=== PATIENT | male | born 1980 | race Caucasian/White ===

== ENCOUNTER 2019-03-13 19:37 | Emergency (ER) | payer OTHER ==
[~2019-03-13] VITALS: Ht 180.3 cm; Wt 99.8 kg
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
[2019-03-13 19:45] VITALS: BP 114/87
[2019-03-13] MEDS ORDERED: MORPHINE SULFATE 10 MG/ML SYRINGE. SQ ONE (20:15)
[2019-03-13] MEDS ORDERED: NEOM1PAC TP (20:46)
[2019-03-13] MEDS ORDERED: HYDR-1179 PO (20:46)
[2019-03-13] MEDS ORDERED: ACET500T68 PO (20:46)
[2019-03-13] MEDS ORDERED: IBUP800T19 PO (20:46)
[2019-03-13] MEDS ORDERED: HYDROcodon/IBUPROFEN 7.5/200MG 1 TAB TABLET PO ONE (21:00)
[2019-03-13] MEDS ORDERED: NEOMY/BACITR/POLYMYXIN OINT PACKET. TP ONE (21:00)
== END 2019-03-13 21:45 | disposition home or self-care (01) ==
LOC: ER 19:37
DX: S40.012A Contusion of left shoulder, initial encounter (principal); S40.011A Contusion of right shoulder, initial encounter; S40.022A Contusion of left upper arm, initial encounter; S40.021A Contusion of right upper arm, initial encounter; S80.12XA Contusion of left lower leg, initial encounter; S80.11XA Contusion of right lower leg, initial encounter; V18.4XXA Pedal cycle driver injured in noncollision transport accident in traffic accident, initial encounter; Y93.I9 Activity, other involving external motion; Y92.64 Mine or pit as the place of occurrence of the external cause; Y99.8 Other external cause status
CPT/HCPCS: 99283

== ENCOUNTER 2021-09-05 07:36 | Emergency (ER) | payer OTHER ==
[~2021-09-05] VITALS: Ht 180.3 cm; Wt 105.7 kg
[~2021-09-05 07:36] MED LIST: ACET500T68 PO; HYDR-1179 PO; IBUP800T19 PO; NEOM1PAC TP
[2021-09-05 07:47] VITALS: BP 150/91
[2021-09-05 08:22] LABS: BACTERIA,URINE 0 /HPF (0-FEW); CLARITY,URINE CLEAR; COLOR,URINE YELLOW; GLUCOSE,URINE NEG (NEG); NITRITE,URINE NEG (NEG); RBC,URINE 20-40 /HPF (0-2); SQUAMOUS EPITHELIAL CELL,UR MOD /LPF; UROBILINOGEN,URINE 0.2 mg/dL (0.2 mg/dL)
--- NOTE | 2021-09-05 08:22 | RAD ---
EXAM: Abdomen and pelvis CT without intravenous contrast. HISTORY: Right flank pain. TECHNIQUE: Computed tomographic images of the abdomen and pelvis were obtained without contrast. Mult iplanar reformatting was performed. *One or more of the following individualized dose reduction techniques were utilized for this examina tion: 1. Automated exposure control. 2. Adjustment of the mA and/or kV according to patient size. 3. Use of iterative reconstruction technique. COMPARISON: None. FINDINGS: Evaluation of the lower thorax is unremarkable. There is no suspicious hepatic lesion on th is noncontrast exam. There is a small cyst within the liver adjacent to the gallbladder fossa, measur ing 9 mm. There is hepatic steatosis with a small focus of fatty sparing along the gallbladder fossa measuring approximately 2 cm. The gallbladder, pancreas, spleen and adrenal glands are unremarkable. There is mild right hydronephrosis and hydroureter extending to a 3 mm obstructing stone within the r ight bladder base at the ureterovesical junction. There are additional nonobstructing right renal sto steve measuring up to 3 mm. There is a 1.0 cm simple left renal cyst. Follow-up is not routinely perfor med for simple cysts. No left renal or ureteral stone is seen. There is no appendicitis. There is no bowel obstruction. The bladder is nearly empty. There is a pros nava calcification. There is increased mural fat within the rectal wall, a finding which can be seen as a sequela of chronic inflammation. There is no convincing acute proctitis. The aorta is normal in caliber. There is no lymphadenopathy. There is no acute or suspicious osseous finding. There is a tra nsitional lumbosacral segment, a normal variant. This is considered L6 for this dictation. There is d egenerative change primarily at L5-L6, with associated bilateral foraminal stenosis. IMPRESSION: 1. Mild right hydronephrosis and hydroureter secondary to an obstructing 3 mm stone within the right bladder at the ureterovesical junction. There are additional nonobstructing right renal stones measur ing up to 3 mm. 2. Small simple left renal and right hepatic cysts. Follow-up is not routinely performed for simple c ysts. Electronically signed by: Jennifer Dale MD (09/05/2021 8:19 AM) [facility]
--- NOTE | 2021-09-05 08:23 | PHYS DOC ---
Past History Past Medical History: No Pertinent History Additional Past Medical Histor: kidney stones Past Surgical History: No Surgical History Alcohol Use: None Drug Use: None General Adult EDM: Chief Complaint: FLANK PAIN HPI: HPI: 41-year-old male presents to the ED with his , (patient consents to his/ her/their knowledge and involvement in pts' medical care), complains of intermittent, right flank pain that woke patient up around 6:30 this morning, sharp and radiating into the groin, with associated mild nausea and "itching" with urination. History of similar symptoms in 2014 when he was diagnosed with kidney stones, required no urologic intervention. Denies any associated vom iting, fever, hematuria or rash. NKDA. Takes no prescribed medications. States pain has been waxing and waning in severity. Review of Systems: Review of Systems: Constitutional: Denies fever or chills Eyes: Denies change in visual acuity HENT: Denies nasal congestion or sore throat Respiratory: Denies cough or shortness of breath Cardiovascular: Denies chest pain or edema GI: Denies vomiting, bloody stools or diarrhea : Denies hematuria or saddle anesthesia Musculoskeletal: Denies midline back pain or joint pain Integument: Denies rash or diaphoresis Neurologic: Denies headache, focal weakness or sensory changes Endocrine: Denies polyuria or polydipsia Lymphatic: Denies swollen glands Psychiatric: Denies depression or anxiety Allergies: Allergies: Allergies Coded Allergies Type Severity Reaction Last Updated Verified No Known Drug Allergies 03/13/19 No Physical Exam: PE: Constitutional: Well developed, well nourished, sitting on edge of bed-appears to be in pain, mildly hypertensive HENT: Normocephalic, atraumatic, Eyes: EOMI, conjunctiva normal, no discharge. Neck: Normal range of motion, supple, Cardiovascular: S1/2 present, regular rhythm Lungs & Thorax: Speaking in full sentences, bilateral equal chest rise, no tachypnea or increased work of breathing Abdomen: soft, no tenderness, Skin: Warm, dry, no erythema, no rash. [] Back: No midline tenderness, right CVA tenderness. [] Extremities: No tenderness, no cyanosis, Neurologic: Alert and oriented X 3, normal motor function, normal sensory function, no focal deficits noted. [] Psychologic: Affect normal, judgement normal, mood normal. [] Current Patient Data: Vital Signs: Vital Signs Date Time Temp Pulse Resp B/P (MAP) Pulse Ox O2 Delivery O2 Flow Rate FiO2 09/05/21 07:47 97.8 73 18 150/91 (110) 98 Room Air EKG: EKG: [] Radiology/Procedures: Radiology/Procedures: IMAGING REPORT Signed PATIENT: DIEGO FIGUEROAOUNT: [id number] : 1980 LOCATION: ER AGE: 41 SEX: M EXAM STATUS: REG ER ORD. PHYSICIAN: KIRAN GARSIA DO REASON: r flank pain, PROCEDURE: CT ABDOMEN PELVIS WO CONTRAST EXAM: Abdomen and pelvis CT without intravenous contrast. HISTORY: Right flank pain. TECHNIQUE: Computed tomographic images of the abdomen and pelvis were obtained without contrast. Multiplanar reformatting was performed. *One or more of the following individualized dose reduction techniques were utilized for this examination: 1. Automated exposure control. 2. Adjustment of the mA and/or kV according to patient size. 3. Use of iterative reconstruction technique. COMPARISON: None. FINDINGS: Evaluation of the lower thorax is unremarkable. There is no suspicious hepatic lesion on this noncontrast exam. There is a small cyst within the liver adjacent to the gallbladder fossa, measuring 9 mm. There is hepatic steatosis with a small focus of fatty sparing along the gallbladder fossa measuring approximately 2 cm. The gallbladder, pancreas, spleen and adrenal glands are unremarkable. There is mild right hydronephrosis and hydroureter extending to a 3 mm obstructing stone within the right bladder base at the ureterovesical junction. There are additional nonobstructing right renal stones measuring up to 3 mm. There is a 1.0 cm simple left renal cyst. Follow-up is not routinely performed for simple cysts. No left renal or ureteral stone is seen. There is no appendicitis. There is no bowel obstruction. The bladder is nearly empty. There is a prostate calcification. There is increased mural fat within the rectal wall, a finding which can be seen as a sequela of chronic inflammation. There is no convincing acute proctitis. The aorta is normal in caliber. There is no lymphadenopathy. There is no acute or suspicious osseous finding. There is a transitional lumbosacral segment, a normal variant. This is considered L6 for this dictation. There is degenerative change primarily at L5- L6, with associated bilateral foraminal stenosis. IMPRESSION: 1. Mild right hydronephrosis and hydroureter secondary to an obstructing 3 mm stone within the right bladder at the ureterovesical junction. There are a dditional nonobstructing right renal stones measuring up to 3 mm. 2. Small simple left renal and right hepatic cysts. Follow-up is not routinely performed for simple cysts. Electronically signed by: Jennifer Steel MD (09/05/2021 8:19 AM) [facility] DICTATED AND SIGNED BY: JENNIFER STEEL MD DATE: 09/05/21813 CC: PCP,UNKNOWN; [facility] 0 Heart Score: C/O Chest Pain: No Risk Factors: Risk Factors: DM, Current or recent (<one month) smoker, HTN, HLP, family history of CAD, obesity. Risk Scores: Score 0 - 3: 2.5% MACE over next 6 weeks - Discharge Home Score 4 - 6: 20.3% MACE over next 6 weeks - Admit for Clinical Observation Score 7 - 10: 72.7% MACE over next 6 weeks - Early Invasive Strategies Course & Med Decision Making: Course & Med Decision Making Pertinent Labs and Imaging studies reviewed. (See chart for details) Concern for right ureterolithiasis with mild hydronephrosis and expected microscopic hematuria (aorta is normal in caliber). Urinalysis with no signs of infection. Labs unremarkable with normal renal function. Incidental finding of hepatic cyst on CT- CT report printed and given to pt to follow-up with PCP. Patient very well-appearing, afebrile and pain well tolerated in the emergency department. Will discharge home with strict ED return precautions were given for worsening pain, intractable nausea or vomiting, fever or persistent hematuria. Encouraged urgent outpatient follow-up with PMD for routine care, urology referral given for definitive management of kidney stones. Life- threatening processes were considered but are low suspicion at this time, given history, physical exam and ED workup. Pt was educated on all prescription medications and adverse effects. All patient's questions were answered and pt was stable at time of discharge. Life/limb-threatening differential includes but is not limited to, aortic dissection/aneurysm, cauda equina syndrome, transverse myelitis, spinal cord/epidural compression syndromes, discitis, spinal stenosis, epidural abscess or hematoma, osteomyelitis, disc herniation, surgical abdomen, stable or unstable fracture, renal/ureteral colic, sepsis, meningitis, musculoskeletal injury, traumatic injury, intraabdominal/retroperitoneal or pelvic bleeding. I have spoken with the patient and/or caregivers. I explained the patient's condition, diagnoses and treatment plan based on the information available to me at this time. I have answered the patient and/or caregiver's questions and addressed any concerns. The patient and/or caregivers have a good understanding of patient's diagnosis, condition and treatment plan as can be expected at this point. Vital signs have been stable. Patient's condition is stable and appropriate for discharge from the emergency department. Patient will pursue further outpatient evaluation with primary care physician or other designated or consulting physician as outlined in the discharge instructions. The patient and/or caregivers are agreeable to this plan of care and follow-up instructions have been explained in detail. The patient and/or caregivers have received these instructions in written form and have expressed an understanding of the discharge instructions. The patient and/or caregivers are aware that any significant change of condition or worsening of symptoms should prompt immediate return to this or the closest emergency department or call to 911. Dutch Disclaimer: phorus Disclaimer: This electronic medical record was generated, in whole or in part, using a voice recognition dictation system. Departure Departure: Impression: Primary Impression: Right ureteral calculus Additional Impressions: Renal colic on right side Hydronephrosis Simple hepatic cyst Disposition: HOME / SELF CARE / HOMELESS Condition: STABLE Referrals: PCP,UNKNOWN (PCP) Follow up with your pcp regarding CT findings (kidney stones and simple liver cyst) [facility] [phone] OR [facility] [phone] Patient Instructions: Diet for Kidney Stones, Kidney Stones Additional Instructions: FOLLOW WITH UROLOGY: For definitive management of kidney stones [facility] [address] [place] [address] OR [facility] [address] [place] [id number] EMERGENCY DEPARTMENT GENERAL DISCHARGE INSTRUCTIONS Thank you for coming to [facility] (ED) today and trusting us with you care. We trust that you had a positivie experience in our Emergency Department. If you wish to speak to the department management, you may call the director at [phone]. YOUR FOLLOW UP INSTRUCTIONS ARE FOLLOWS: 1. Do you have a private Doctor? If you do not have a private doctor, please ask for a resource list of physicians or clinics that may be able to assist you with follow up care. 2. The Emergency Physician has interpreted your x-rays. The X-Ray specialist will also review them. If there is a change in the findings, you will be notified in 48 hours when at all possible. 3. A lab test or culture has been done, your results will be reviewed and you will be notified if you need a change in treatment. ADDITIONAL INSTRUCTIONS AND INFORMATION: 1. Your care today has been supervised by a physician who is specially trained in emergency care. Many problems require more than one evaluation for a complete diagnosis and treatment. We recommend that you schedule your follow up appointment as recommended to ensure complete treatment of you illness or injury. If you are unable to obtain follow up care and continue to have a problem, or if your condition worsens, we recommend that you return to the ED. 2. We are not able to safely determine your condition over the phone nor are we able to give sound medical advice over the phone. For these safety reasons, if you call for medical advice we will ask you to come to the ED for further evaluation. 3. If you have any questions regarding these discharge instructions please call the ED at [phone]. SAFETY INFORMATION: In the interest of safety, wellness, and injury prevention; we encourage you to wear your sealbelt, if you smoke; quite smoking, and we encourage family to use a protective helmet for bicycling and other sporting events that present an increased risk for head injury. IF YOUR SYMPTOMS WORSEN OR NEW SYMPTOMS DEVELOP, OR YOU HAVE CONCERNS ABOUT YOUR CONDITION; OR IF YOUR CONDITION WORSENS WHILE YOU ARE WAITING FOR YOUR FOLLOW UP A PPOINTMENT; EITHER CONTACT YOUR PRIMARY CARE DOCTOR, THE PHYSICIAN WHOSE NAME AND NUMBER YOU WERE GIVEN, OR RETURN TO THE ED IMMEDIATELY. Scripts Ondansetron (ONDANSETRON ODT) 4 Mg Tab.rapdis 4 MG PO Q6HRS for Nausea/Vomiting, #15 TAB Prov: KIRAN GARSIA DO 09/05/21 Tamsulosin Hcl (FLOMAX) 0.4 Mg Cap.er.24h 0.4 MG PO DAILY for kidney stone for 10 Days, #10 CAP.SR Prov: KIRAN GARSIA DO 09/05/21 Hydrocodone Bit/Acetaminophen (HYDROCODONE-APAP 5-325 ) 1 Each Tablet 1 TAB PO PRN Q6HRS PRN for PAIN for 4 Days, #16 TAB 0 Refills Do not drink alcohol, drive or operate heavy machinery with this medication-causes drowsiness Prov: KIRAN GARSIA DO 09/05/21 KIRAN GARSIA DO Sep 05, 2021 08:23
[2021-09-05] MEDS ORDERED: ONDANSETRON ODT 4 MG TAB.RAPDIS PO ONE (08:30)
[2021-09-05] MEDS ORDERED: HYDROcodone/APAP 5/325MG 1 TAB TABLET PO ONE (08:30)
[2021-09-05 08:34] LABS: BASO % 1 % (0-3); EOS # 0.2 x10^3/uL (0.0-0.7); EOS % 4 % (0-3); HEMATOCRIT 48.2 % (39.0-53.0); HEMOGLOBIN 16.1 g/dL (13.0-17.5); LYMPH # 2.3 x10^3/uL (1.0-4.8); LYMPH % 52 % (24-48); MEAN CORPUSCULAR HEMOGLOBIN 32 pg (25-35); MEAN CORPUSCULAR HGB CONC 33 g/dL (31-37); MEAN CORPUSCULAR VOLUME 94 fL (79-100); MONO # 0.4 x10^3/uL (0.0-1.1); MONO % 9 % (0-9); NEUT # 1.5 x10^3uL (1.8-7.7); NEUT % 35 % (31-73); PLATELET COUNT 231 x10^3/uL (140-400); RED CELL DISTRIBUTION WIDTH 13.2 % (11.5-14.5); WHITE BLOOD COUNT 4.3 x10^3/uL (4.0-11.0)
[2021-09-05 08:39] LABS: CALCIUM 8.9 mg/dL (8.5-10.1); CREATININE 1.2 mg/dL (0.7-1.3); GFR 66.4; POTASSIUM 4.6 mmol/L (3.5-5.1)
[2021-09-05 08:45] LABS: ALBUMIN 4.2 g/dL (3.4-5.0); ALBUMIN/GLOBULIN RATIO 1.3 (1.0-1.7); TOTAL BILIRUBIN 0.3 mg/dL (0.2-1.0); TOTAL PROTEIN 7.4 g/dL (6.4-8.2)
[2021-09-05] MEDS ORDERED: KETOROLAC 60 MG/2 ML VIAL. IM ONE (09:00)
[2021-09-05] MEDS ORDERED: HYDR-2155 PO (09:02)
[2021-09-05] MEDS ORDERED: ONDA4TAB12 PO (09:02)
[2021-09-05] MEDS ORDERED: TAMS0.4C97 PO (09:02)
== END 2021-09-05 09:14 | disposition home or self-care (01) ==
LOC: ER 07:36
DX: N13.2 Hydronephrosis with renal and ureteral calculous obstruction (principal); K76.89 Other specified diseases of liver; Z87.442 Personal history of urinary calculi
CPT/HCPCS: 36415; 74176; 80053; 81001; 85025; 99284; Q0162